=== PATIENT | female | born 1965 | race Caucasian/White ===

== ENCOUNTER → 2019-05-16 | Outpatient (CLI) | payer OTHER ==
--- NOTE | 2019-05-16 12:18 | REPMRS ---
Patient History The patient states she has not had a clinical breast exam in over a year. Patient is postmenopausal. Family history of breast cancer at age 50 or over in maternal aunt, breast cancer at age 50 or over in maternal grandmother. Took hormonal contraceptives for 7 years. Digital Woman Screen Mammo: May 16, 2019 - Exam #: [id number] Bilateral CC and MLO view(s) were taken. Technologist: Antoinette Gomez, Technologist Prior study comparison: December 27, 2014, digital woman screen mammo performed at [facility] and [facility], [place]. November 30, 2013, bilateral bilat screen digital mammo, performed at [facility] ([facility]). FINDINGS: There are scattered fibroglandular densities. There has been no change in the appearance of the mammogram from the prior studies. There is a mild amount of scattered fibroglandular density which is fairly symmetric. There is no interval development of dominant mass, architectural distortion, or grouped microcalcification suggestive of malignancy. Assessment: BI-RADS/ACR category 1 mammogram. Negative Mammogram. Recommendation Routine screening mammogram of both breasts in 1 year (for women over age 40). This patient's Lifetime Breast Cancer Risk is estimated at 16.3 %. This mammogram was interpreted with the aid of an FDA-approved computer-aided dectection system. Electronically Signed By: Carlos Riggs MD 05/16/19 [id number]
== END ==
LOC: M WHC 10:36
PROVIDERS: ATTEND Family Medicine
DX: Z12.31 Encounter for screening mammogram for malignant neoplasm of breast (principal)

== ENCOUNTER → 2020-03-04 | Outpatient (CLI) | payer SELFPAY | LOC: M LABCAHC 10:45 | PROVIDERS: ATTEND Pediatrics | DX: Z11.59 Encounter for screening for other viral diseases (principal) ==

== ENCOUNTER → 2022-09-20 | Outpatient (CLI) | payer OTHER | LOC: M WHC 16:04 | PROVIDERS: ATTEND Nurse Practitioner Primary Care | DX: Z12.31 Encounter for screening mammogram for malignant neoplasm of breast (principal) ==

== ENCOUNTER → 2024-01-13 | Outpatient (CLI) | payer OTHER | LOC: M WHC 13:31 | PROVIDERS: ATTEND Family Medicine | DX: Z12.31 Encounter for screening mammogram for malignant neoplasm of breast (principal) ==

== ENCOUNTER 2024-08-07 06:42 | Day surgery (SDC) | payer OTHER ==
[~2024-08-07] VITALS: Ht 160 cm; Wt 61.4 kg
[~2024-08-07 06:42] MED LIST: ALBU8.5H; B-12100010 PO; D 50CAP2 PO; DEKA1CHW PO; RIZA10TA64 PO; SYNT25TA PO
[2024-08-07] MEDS ORDERED: propofoL 200 MG/20 ML VIAL As Ordered ONE (06:50)
[2024-08-07 08:19] VITALS: TEMP 97.6
[2024-08-07 08:36] VITALS: BP 128/79; O2SAT 97
== END 2024-08-07 08:49 | disposition home or self-care (01) ==
LOC: M OPP 06:42
PROVIDERS: ATTEND Internal Medicine Gastroenterology
DX: Z12.11 Encounter for screening for malignant neoplasm of colon (principal); K63.5 Polyp of colon; K64.8 Other hemorrhoids; Z86.0100 Personal history of colon polyps, unspecified; E03.9 Hypothyroidism, unspecified; Z79.890 Hormone replacement therapy; Z79.899 Other long term (current) drug therapy; Z90.89 Acquired absence of other organs; Z98.84 Bariatric surgery status

== ENCOUNTER → 2025-03-08 | Outpatient (CLI) | payer OTHER | LOC: M WHC 09:40 | PROVIDERS: ATTEND Family Medicine | DX: Z12.31 Encounter for screening mammogram for malignant neoplasm of breast (principal) ==